=== PATIENT | male | born 1990 | race Caucasian/White ===

== ENCOUNTER 2019-03-11 17:47 | Emergency (ER) | payer OTHER ==
[2019-03-11] MEDS ORDERED: PENI500T PO (18:24)
--- NOTE | 2019-03-11 18:24 | PHYS DOC ---
Adult General Chief Complaint Chief Complaint: SORE THROAT HPI HPI 29-year-old male presents with 2 day history of sore throat. Patient states it is painful to swallow both liquids and solids. He has a history of strep infections at least one time a year. There was a colicky work that was recently diagnosed with strep. The patient's symptoms started about 1-2 days after that. He denies fever or chills. He tells me every time he gets a sore throat it seems to turn into strep. Review of Systems Review of Systems Constitutional: Denies fever or chills [] Eyes: Denies change in visual acuity, redness, or eye pain [] HENT: sore throat [] Respiratory: Denies cough or shortness of breath [] Cardiovascular: No additional information not addressed in HPI [] GI: Denies abdominal pain, nausea, vomiting, bloody stools or diarrhea [] : Denies dysuria or hematuria [] Musculoskeletal: Denies back pain or joint pain [] Integument: Denies rash or skin lesions [] Neurologic: Denies headache, focal weakness or sensory changes [] Endocrine: Denies polyuria or polydipsia [] All other systems were reviewed and found to be within normal limits, except as documented in this note. Physical Exam Physical Exam Constitutional: Well developed, well nourished, no acute distress, non-toxic appearance. [] HENT: Normocephalic, atraumatic, bilateral external ears normal, oropharynx erythematous without exudates, nose normal. [] Eyes: PERRLA, EOMI, conjunctiva normal, no discharge. [] Neck: Normal range of motion, no tenderness, supple, no stridor. [] Cardiovascular:Heart rate regular rhythm, no murmur [] Lungs & Thorax: Bilateral breath sounds clear to auscultation [] Abdomen: Bowel sounds normal, soft, no tenderness, no masses, no pulsatile masses. [] Skin: Warm, dry, no erythema, no rash. [] Back: No tenderness, no CVA tenderness. [] Extremities: No tenderness, no cyanosis, no clubbing, ROM intact, no edema. [] Neurologic: Alert and oriented X 3, normal motor function, normal sensory function, no focal deficits noted. [] Psychologic: Affect normal, judgement normal, mood normal. [] EKG EKG [] Radiology/Procedures Radiology/Procedures [] Course & Med Decision Making Course & Med Decision Making Pertinent Labs and Imaging studies reviewed. (See chart for details) Patient's rapid strep is negative. Given his history and very swollen tonsils, I will treat him with penicillin anyway. He is stable for discharge at this time. [] Dragon Disclaimer Dragon Disclaimer This electronic medical record was generated, in whole or in part, using a voice recognition dictation system. Departure Departure: Impression: Primary Impression: Strep pharyngitis Disposition: 01 HOME, SELF-CARE Condition: STABLE Referrals: PCP,NO (PCP) Patient Instructions: Sore Throat, [id number] Scripts Penicillin V Potassium (PENICILLIN V POTASSIUM) 500 Mg Tablet 1 TAB PO BID for strep throat, #20 TAB Prov: PIPPA CURRY DO 03/11/19 PIPPA CURRY DO Mar 11, 2019 18:24
[2019-03-11 18:30] VITALS: BP 128/88
== END 2019-03-11 18:39 | disposition home or self-care (01) ==
LOC: ER 17:47
DX: J02.0 Streptococcal pharyngitis (principal); B95.0 Streptococcus, group A, as the cause of diseases classified elsewhere
CPT/HCPCS: 87070; 87880; 99283

== ENCOUNTER 2020-12-05 10:25 | Emergency (ER) | payer MEDICAID, OTHER ==
[~2020-12-05] VITALS: Ht 182.9 cm; Wt 63.6 kg
[~2020-12-05 10:25] MED LIST: PENI500T PO
[2020-12-05] MEDS ORDERED: LIDO:MAALOX 1:1 20 ML SINGLE DOSE. PO ONE (11:00)
[2020-12-05 11:10] LABS: BASO % 0 % (0-3); EOS # 0.1 x10^3/uL (0.0-0.7); EOS % 1 % (0-3); HEMOGLOBIN 14.5 g/dL (13.0-17.5); LYMPH # 1.9 x10^3/uL (1.0-4.8); LYMPH % 17 % (24-48); MEAN CORPUSCULAR HEMOGLOBIN 30 pg (25-35); MEAN CORPUSCULAR HGB CONC 34 g/dL (31-37); MEAN CORPUSCULAR VOLUME 89 fL (79-100); MONO # 1.3 x10^3/uL (0.0-1.1); MONO % 11 % (0-9); NEUT # 8.4 x10^3uL (1.8-7.7); NEUT % 72 % (31-73); PLATELET COUNT 284 x10^3/uL (140-400); RED BLOOD COUNT 4.83 x10^6/uL (4.30-5.70); RED CELL DISTRIBUTION WIDTH 13.5 % (11.5-14.5); WHITE BLOOD COUNT 11.7 x10^3/uL (4.0-11.0)
[2020-12-05 11:20] LABS: CALCIUM 8.7 mg/dL (8.5-10.1); CREATININE 1.3 mg/dL (0.7-1.3); GFR 64.8; POTASSIUM 3.8 mmol/L (3.5-5.1)
--- NOTE | 2020-12-05 11:30 | RAD ---
Exam performed: 2 views of the chest. Indication: Reason: chest pain / Spl. Instructions: / History: Date of Service: 12/05/2020 11:02 AM. Comparison : None available Findings: PA and lateral radiographs of the chest reveal a normal cardiomediastinal contour. The lungs are paty r. No pleural fluid is seen. The visualized osseous structures are unremarkable. Impression: No acute cardiopulmonary process seen. Electronically signed by: Leeanne May MD (12/05/2020 11:28 AM) [facility] SYSTEM[facility]rist[facility]
[2020-12-05 11:34] LABS: ALBUMIN 3.7 g/dL (3.4-5.0); ALBUMIN/GLOBULIN RATIO 1.2 (1.0-1.7); TOTAL BILIRUBIN 0.4 mg/dL (0.2-1.0); TOTAL PROTEIN 6.8 g/dL (6.4-8.2)
--- NOTE | 2020-12-05 11:40 | PHYS DOC ---
Past History Past Medical History: Other Additional Past Medical Histor: has only one kidney from Past Surgical History: No Surgical History Alcohol Use: None Drug Use: None General Adult EDM: Chief Complaint: CHEST PAIN HPI: HPI: Patient is a 30-year-old male coming in for substernal chest pain that he describes as sharp for about 24 hours. Patient had vomiting and diarrhea was seen in urgent care 2 days ago. At that time had a rapid Covid test and strep which were both negative. Patient does not take anything for the pain. Denies any medical history. Denies any history of GERD. Review of Systems: Review of Systems: All other systems within normal limits except for as noted in the HPI Current Medications: Current Meds: Current Medications Medications (Trade) Dose Ordered Sig/Miguel Start Time Stop Time Status Last Admin Dose Admin Multi-Ingredient Mouthwash/Gargle (Gi Cocktail) 20 ml 1X ONCE 12/05/20 11:00 12/05/20 11:01 DC 12/05/20 11:19 20 ML Allergies: Allergies: Allergies Coded Allergies Type Severity Reaction Last Updated Verified No Known Drug Allergies 03/11/19 No Physical Exam: PE: Constitutional: Well developed, well nourished, no acute distress, non-toxic appearance. [] HENT: Normocephalic, atraumatic, bilateral external ears normal, nose normal. [] Eyes: PERRLA, conjunctiva normal, no discharge. [] Neck: No rigidity, supple, no stridor. [] Cardiovascular: Regular rate and rhythm, brisk cap refill [] Lungs & Thorax: Non labored symmetric respirations, no tachypnea or respiratory distress [] Abdomen: Soft, nondistended. Skin: Warm, dry, no erythema, no rash. [] Back: Unremarkable Extremities: No deformities, range of motion grossly intact, no lower extremity edema [] Neurologic: Alert and oriented X 3, no focal deficits noted. [] Psychologic: Affect normal, judgement normal, mood normal. [] Current Patient Data: Labs: Laboratory Tests Test 12/05/20 10:50 White Blood Count 11.7 x10^3/uL (4.0-11.0) H Red Blood Count 4.83 x10^6/uL (4.30-5.70) Hemoglobin 14.5 g/dL (13.0-17.5) Hematocrit 43.0 % (39.0-53.0) Mean Corpuscular Volume 89 fL (79-100) Mean Corpuscular Hemoglobin 30 pg (25-35) Mean Corpuscular Hemoglobin Concent 34 g/dL (31-37) Red Cell Distribution Width 13.5 % (11.5-14.5) Platelet Count 284 x10^3/uL (140-400) Neutrophils (%) (Auto) 72 % (31-73) Lymphocytes (%) (Auto) 17 % (24-48) L Monocytes (%) (Auto) 11 % (0-9) H Eosinophils (%) (Auto) 1 % (0-3) Basophils (%) (Auto) 0 % (0-3) Neutrophils # (Auto) 8.4 x10^3uL (1.8-7.7) H Lymphocytes # (Auto) 1.9 x10^3/uL (1.0-4.8) Monocytes # (Auto) 1.3 x10^3/uL (0.0-1.1) H Eosinophils # (Auto) 0.1 x10^3/uL (0.0-0.7) Basophils # (Auto) 0.0 x10^3/uL (0.0-0.2) D-Dimer (Judy) 2.55 mg/L (0.00-0.50) H Sodium Level 140 mmol/L (136-145) Potassium Level 3.8 mmol/L (3.5-5.1) Chloride Level 101 mmol/L (98-107) Carbon Dioxide Level 29 mmol/L (21-32) Anion Gap 10 (6-14) Blood Urea Nitrogen 16 mg/dL (8-26) Creatinine 1.3 mg/dL (0.7-1.3) Estimated GFR (Cockcroft-Gault) 64.8 BUN/Creatinine Ratio 12 (6-20) Glucose Level 99 mg/dL (70-99) Calcium Level 8.7 mg/dL (8.5-10.1) Total Bilirubin Pending Aspartate Amino Transferase (AST) Pending Alanine Aminotransferase (ALT) Pending Alkaline Phosphatase Pending Troponin I Quantitative < 0.017 ng/mL (0-0.055) Total Protein Pending Albumin Pending Albumin/Globulin Ratio Pending Lipase Pending Vital Signs: Vital Signs Date Time Temp Pulse Resp B/P (MAP) Pulse Ox O2 Delivery O2 Flow Rate FiO2 12/05/20 10:31 97.7 103 16 151/95 (113) 98 Room Air EKG: EKG: Sinus rhythm, heart 104 bpm, normal axis, no ST elevation or depression, no ectopy. [] Radiology/Procedures: Radiology/Procedures: CTA scan of the Chest with Contrast (Pulmonary Embolism protocol) 12/05/2020 Clinical History: Chest pain. Elevated d-dimer. Technique: After the intravenous administration of 98 cc of Omnipaque 350, contiguous, 0.625 mm axial sections were obtained through the chest. 2 mm axial and 3D MIP coronal and sagittal reconstructed images were obtained. One or more of the following individualized dose reduction techniques were utilized for this study: 1. Automated exposure control. 2. Adjustment of the mA and/or kV according to patient size. 3. Use of iterative reconstruction technique. Findings: Comparison is made to PA and lateral chest radiographs dated 12/05/2020. No filling defect is seen within the major branches of either pulmonary artery. There is no CT evidence of pulmonary embolism. The heart and thoracic aorta are within normal limits. There is a moderate sized sliding hiatal hernia. Diffuse wall thickening of the esophagus is seen which may reflect esophagitis. Minimal dependent subsegmental atelectasis is seen involving both lungs. No area of consolidation, pleural effusion or pneumothorax is seen. Impression: 1. There is no CT evidence of pulmonary embolism. 2. There is a moderate sized sliding hiatal hernia. Diffuse wall thickening of the esophagus is seen which may reflect esophagitis. Exam performed: 2 views of the chest. Indication: Reason: chest pain / Spl. Instructions: / History: Date of Service: 12/05/2020 11:02 AM. Comparison : None available Findings: PA and lateral radiographs of the chest reveal a normal cardiomediastinal contour. The lungs are clear. No pleural fluid is seen. The visualized osseous structures are unremarkable. Impression: No acute cardiopulmonary process seen. [] Heart Score: C/O Chest Pain: Yes HEART Score for Chest Pain: HEART Score for Chest Pain Response (Comments) Value History Slighlty/Non-Suspicious 0 ECG Normal 0 Age < 45 0 Risk Factors No Risk Factors 0 Troponin < Normal Limit 0 Total 0 Risk Factors: Risk Factors: DM, Current or recent (<one month) smoker, HTN, HLP, family history of CAD, obesity. Risk Scores: Score 0 - 3: 2.5% MACE over next 6 weeks - Discharge Home Score 4 - 6: 20.3% MACE over next 6 weeks - Admit for Clinical Observation Score 7 - 10: 72.7% MACE over next 6 weeks - Early Invasive Strategies Course & Med Decision Making: Course & Med Decision Making Pertinent Labs and Imaging studies reviewed. (See chart for details) Esophagitis likely due to patient's recent illness consisting of vomiting and d iarrhea. Combination with a sliding hiatal hernia. Discussed findings with patient and will treat with proton pump inhibitor. Patient's ALC is 1988, unlikely to be a candidiasis infection secondary to HIV. [] Dragon Disclaimer: Dragon Disclaimer: This electronic medical record was generated, in whole or in part, using a voice recognition dictation system. Departure Departure: Impression: Primary Impression: Esophagitis Additional Impression: Hiatal hernia Disposition: HOME / SELF CARE / HOMELESS Condition: STABLE Referrals: PCP,NO (PCP) Patient Instructions: Esophagitis Additional Instructions: [facility] [address] [place] [id number] Scripts Pantoprazole Sodium (PANTOPRAZOLE SODIUM) 40 Mg Tablet.dr 1 TAB PO DAILY for antacid for 30 Days, #30 TAB 3 Refills Prov: SARKIS CARDOZA MD 12/05/20 SARKIS CARDOZA MD December 05, 2020 11:40
[2020-12-05] MEDS ORDERED: IOHEXOL 350 MG/ML 100 ML VIAL. IV ONE ×2 (11:45→12:30)
[2020-12-05 13:40] VITALS: BP 145/87
--- NOTE | 2020-12-05 13:45 | RAD ---
CTA scan of the Chest with Contrast (Pulmonary Embolism protocol) 12/05/2020 Clinical History: Chest pain. Elevated d-dimer. Technique: After the intravenous administration of 98 cc of Omnipaque 350, contiguous, 0.625 mm axial sections were obtained through the chest. 2 mm axial and 3D MIP coronal and sagittal reconstructed images were obtained. One or more of the following individualized dose reduction techniques were utilized for this study: 1. Automated exposure control. 2. Adjustment of the mA and/or kV according to patient size. 3. Use of iterative reconstruction technique. Findings: Comparison is made to PA and lateral chest radiographs dated 12/05/2020. No filling defect is seen within the major branches of either pulmonary artery. There is no CT eviden ce of pulmonary embolism. The heart and thoracic aorta are within normal limits. There is a moderate sized sliding hiatal hernia. Diffuse wall thickening of the esophagus is seen which may reflect esoph agitis. Minimal dependent subsegmental atelectasis is seen involving both lungs. No area of consolidation, pl eural effusion or pneumothorax is seen. Impression: 1. There is no CT evidence of pulmonary embolism. 2. There is a moderate sized sliding hiatal hernia. Diffuse wall thickening of the esophagus is seen which may reflect esophagitis. Electronically signed by: Kumar Kurtz MD (12/05/2020 1:42 PM) [id number]
--- NOTE | 2020-12-05 13:53 | EKG ---
[address] [address] Test Date: 2020-12-05 Test Time: 10:30:59 Pat Name: YE REGALADO Department: Room: Gender: M Manager Chemistry: HAYDEN : 1990 Requested By: SARKIS CARDOZA Order Number: [id number] Reading MD: Measurements Intervals [place] Rate: 104 P: 62 NE: 130 QRS: 90 QRSD: 74 T: 56 QT: 318 QTc: 418 Interpretive Statements SINUS TACHYCARDIA OTHERWISE NORMAL ECG RI6.02 No previous ECG available for comparison
[2020-12-05] MEDS ORDERED: PANTOPRAZOLE IV 40 MG VIAL. ONE (14:26)
[2020-12-05] MEDS ORDERED: PANT40TA6 PO (14:28)
[2020-12-05] MEDS ORDERED: PANTOPRAZOLE IV 40 MG VIAL. IVP ONE (14:30)
== END 2020-12-05 14:40 | disposition home or self-care (01) ==
LOC: ER 10:25
DX: R07.89 Other chest pain (principal); K44.9 Diaphragmatic hernia without obstruction or gangrene; K20.90 Esophagitis, unspecified without bleeding
CPT/HCPCS: 36415; 71046; 71275; 80053; 83690; 84484; 85025; 85379; 85610; 93005; 96374; 99285; C9113

== ENCOUNTER → 2021-09-07 | Outpatient (CLI) | payer BC ==
[~2021-09-07] MED LIST changes: +PANT40TA6 PO
--- NOTE | 2021-09-07 23:30 | RAD ---
XR RT WRIST 3VIEWS DATE: 09/07/2021 8:25 PM INDICATION: Injury, pain to right wrist COMPARISON: None. FINDINGS: Bones: There is no evidence of acute fracture or dislocation. Joints: The joint spaces are normal. Miscellaneous: None. IMPRESSION: No evidence of acute fracture. Electronically signed by: Ayush Olson MD (09/07/2021 11:28 PM) [email or web address]
== END ==
LOC: RAD 20:04
PROVIDERS: ATTEND Registered Nurse
DX: M25.531 Pain in right wrist (principal)
CPT/HCPCS: 73110